=== PATIENT | male | born 1955 | race Caucasian/White ===

== ENCOUNTER → 2024-05-21 11:08 | Outpatient (REF) | payer OTHER, SELFPAY | LOC: RCS 11:08 | PROVIDERS: ATTENDING PHYSICIAN Nuclear Medicine Nuclear Cardiology; FAMILY PHYSICIAN Family Medicine | DX: I44.7 Left bundle-branch block, unspecified (principal); R94.31 Abnormal electrocardiogram [ECG] [EKG]; I49.3 Ventricular premature depolarization | CPT/HCPCS: 93306 ==

== ENCOUNTER 2025-06-11 10:12 | Emergency (ER) | payer MEDICARE, OTHER, SELFPAY ==
[2025-06-11 10:14] VITALS: BP 149/110
--- NOTE | 2025-06-11 10:58 | ED.GENMED ---
History of Present Illness
<CHIRAG Campuzano - Last Filed: 06/11/25 14:36>
General
Chief Complaint: Skin Problem
Source: patient
Exam Limitations: none
Time Seen by Provider: 06/11/25 10:53
Nursing documentation reviewed up to this point in time: agreed with
History of Present Illness
History of Present Illness:
Patient is a 70-year-old male who presented to the ER for evaluation. He reports on May 17 [place] the [place] and that evening had itchiness to his left upper thigh. He noticed redness and 2 days after May 19 went to urgent care was placed on
Keflex. He took that for 10 days. He reports it got better but then there is slight extension and on May 27 his family doctor extended it for 5 more days for total of 10 days. He ended Keflex last June 02. It almost was away and then on
he had increasing redness to the area again and now has 2 separate areas of redness. He was seen by his family doctor yesterday placed on prednisone. He took 50 mg yesterday and 20 mg today and was recommended to come to the ER by family
doctor today.
He denies any fever or chills. He does not feel ill
Phy Exam
<CHIRAG Campuzano - Last Filed: 06/11/25 14:36>
General Physical Exam
General Presentation: no apparent distress
General age: appears stated age
General Skin: warm and dry
General Habitus: normal
General Mental: alert
General Hydration: appears well hydrated
Neurological Exam
Neurological Exam: alert and oriented x3
Musculoskeletal Exam
Musculoskeletal Exam: other (left thigh with extended area of erythema /induration no fluctuance, additional separate area in groin area)
Skin Exam
Skin Exam: normal color and warm/dry
Psychiatric Exam
Psychiatric Exam: normal mood/affect
Course
<CHIRAG Campuzano - Last Filed: 06/11/25 14:36>
Orders/Labs/Results
Orders:
Orders
06/11/25 11:18
IV Insert/Care/Rem.- Treatment PRN
06/11/25 11:27
Complete Blood Count/With Diff Urgent
Comprehensive Metabolic Panel Urgent
06/11/25 11:48
Vital Signs- Treatment ONCE
Frequency: Once
06/11/25 12:25
US Periph Venous LOWER Ext LT Urgent
Comment:
Reason For Exam: LLE pain, redness
06/11/25 14:28
Doxycycline [Vibramycin] 100 mg PO NOW STA
06/12/25 08:00
Doxycycline [Vibramycin] 100 mg PO DAILY
Abnormal Lab Results
06/11/25
11:27
WBC 11.5 H 10^3/uL
(4.8-10.8)
RBC 4.48 L 10^6/uL
(4.70-6.10)
MCV 95.1 H fL
(80.0-94.0)
MCH 32.8 H pg
(27.0-31.0)
MPV 11.9 H fL
(7.4-10.4)
Absolute Neuts (auto) 9.2 H 10^3/uL
(1.4-6.5)
Absolute Lymphs (auto) 0.9 L 10^3/uL
(1.2-3.4)
Absolute Monos (auto) 1.3 H 10^3/uL
(0.1-0.6)
Neutrophils % 79.5 H %
(42.2-75.2)
Lymphocytes % 8.2 L %
(20.5-51.1)
Monocytes % 10.9 H %
(1.7-9.3)
Creatinine 0.6 L mg/dL
(0.7-1.3)
Glucose 136 H mg/dl
(70-99)
06/11/25 11:27
06/11/25 11:27
Vital Signs
Initial and Last Documented VS:
Initial Vital Signs
Temp Pulse Resp BP Pulse Ox
98.1 F 117 16 149/110 97
06/11/25 10:14 06/11/25 10:14 06/11/25 10:14 06/11/25 10:14 06/11/25 10:14
Last Documented Vital Signs
Temp Pulse Resp BP Pulse Ox
98.1 F 59 15 137/87 97
06/11/25 10:14 06/11/25 12:00 06/11/25 12:00 06/11/25 12:00 06/11/25 12:00
<Silvio Capps MD - Last Filed: 06/11/25 12:34>
Orders/Labs/Results
Orders:
Orders
06/11/25 11:18
IV Insert/Care/Rem.- Treatment PRN
06/11/25 11:27
Complete Blood Count/With Diff Urgent
Comprehensive Metabolic Panel Urgent
06/11/25 11:48
Vital Signs- Treatment ONCE
Frequency: Once
06/11/25 12:25
US Periph Venous LOWER Ext LT Urgent
Comment:
Reason For Exam: LLE pain, redness
06/11/25 14:28
Doxycycline [Vibramycin] 100 mg PO NOW STA
06/12/25 08:00
Doxycycline [Vibramycin] 100 mg PO DAILY
Abnormal Lab Results
06/11/25
11:27
WBC 11.5 H 10^3/uL
(4.8-10.8)
RBC 4.48 L 10^6/uL
(4.70-6.10)
MCV 95.1 H fL
(80.0-94.0)
MCH 32.8 H pg
(27.0-31.0)
MPV 11.9 H fL
(7.4-10.4)
Absolute Neuts (auto) 9.2 H 10^3/uL
(1.4-6.5)
Absolute Lymphs (auto) 0.9 L 10^3/uL
(1.2-3.4)
Absolute Monos (auto) 1.3 H 10^3/uL
(0.1-0.6)
Neutrophils % 79.5 H %
(42.2-75.2)
Lymphocytes % 8.2 L %
(20.5-51.1)
Monocytes % 10.9 H %
(1.7-9.3)
Creatinine 0.6 L mg/dL
(0.7-1.3)
Glucose 136 H mg/dl
(70-99)
06/11/25 11:27
06/11/25 11:27
Vital Signs
Initial and Last Documented VS:
Initial Vital Signs
Temp Pulse Resp BP Pulse Ox
98.1 F 117 16 149/110 97
06/11/25 10:14 06/11/25 10:14 06/11/25 10:14 06/11/25 10:14 06/11/25 10:14
Last Documented Vital Signs
Temp Pulse Resp BP Pulse Ox
98.1 F 59 15 137/87 97
06/11/25 10:14 06/11/25 12:00 06/11/25 12:00 06/11/25 12:00 06/11/25 12:00
<CHIRAG Campuzano - Last Filed: 06/11/25 14:36>
MDM/Problems Addressed
Differential Diagnosis Includes:
Not including cellulitis, infection
MDM/Problems Addressed:
As documented patient is a 70-year-old male that was treated with 15 days of Keflex for cellulitis to left leg seemed to improve and then came back again however he does have a second separate area as well. Patient has 2 separate areas of erythema
to his left thigh with induration. He however is very well-appearing he denies any fever chills he is nontoxic he is still very active. His white count is minimally elevated he is afebrile here. Case reviewed with ED physician will obtain
ultrasound and consult ID if negative to discuss antibiotics.
1425: Ultrasound negative for DVT Case discussed with Dr. Mayes does recommend Doxy. Patient is very well-appearing and very active does not feel ill I did however review with patient we will start doxycycline as a new antibiotic however he is to
be closely followed by his family doctor and prompt return if any worsening of symptoms worsening redness red streaking pain fever chills.
<CHIRAG Campuzano - Last Filed: 06/11/25 14:36>
*Pulse Oximetry
SaO2: 97
Oxygen Mode of Delivery: Room air
Patient hypoxic: no
*Critical Care Note
Total Time (30-74mins, 75-104mins- exclusive of procedures): Not Applicable
<CHIRAG Campuzano - Last Filed: 06/11/25 14:36>
Patient Management
Discussion with other providers: Television Tube Inspector (infectious disease DR Goldsmith )
ED Attending Note
<CHIRAG Campuzano - Last Filed: 06/11/25 14:36>
-
Portions of this chart may have been created with voice recognition software.� Occasional wrong word or��sound alike� substitutions may have occurred due to the inherent limitations of voice recognition software.
<Silvio Capps MD - Last Filed: 06/11/25 12:34>
ED Attending Note
Patient seen and examined by attending physician: Yes
ED Attending Note:
I have seen and evaluated the patient with a [id number] encounter. I have spoken to the TOMEKA and involved in the medical history, the physical exam, medical decision making.
Evaluation and management service: agree unless noted differently below.
Results interpretation: agree unless noted differently below.
Focused HPI: 70-year-old male with history of hyperlipidemia presents to the ER for evaluation of left lower extremity redness and pain. Patient says that he had an insect bite last month while he was at the beach that became red and inflamed and
he ultimately developed extensive redness on the entire left inner to upper thigh. He was seen in urgent care and was prescribed Keflex and he says he took it for 2 weeks. He says initially the redness improved it had essentially completely gone
away and the pain improved however after a few days off of the antibiotic it returned and has progressed now to include the inguinal crease. Was sent to the ER by his primary doctor to be further assessed. He says that the pain currently is less
than when he initially had the infection but redness is slightly more extensive. He denies any fevers or chills. He denies any chest pain, shortness of breath or any other acute complaints.
Physical exam: Patient was hypertensive and tachycardic in triage but on my assessment his vital signs are normal. He has erythema extending from the left medial thigh just proximal to the knee all the way up to the anterior inguinal crease�no
erythema in the scrotum or penis or in the suprapubic region; in the left mid inner thigh there is an area of induration. No wounds, pustules or drainage/weeping. No palpable cords. No edema. He has good pulses in the leg.
Medical Decision Makin-year-old male presents for evaluation of redness and pain in the left medial thigh�initially improved after 2 weeks of antibiotics but quickly had rebound symptoms that have progressed. Vitals and exam as above. He had
labs sent off including a CBC which showed a marginal leukocytosis. Will send for an ultrasound to rule out DVT and evaluate for collection/abscess. Will reassess after the above�will likely discuss with infectious disease regarding antibiotic
choice going forward if DVT study negative.
Discharge Plan
Departure
Patient Disposition: Home (Routine Discharge)
Date of Disposition: 06/11/25
Time of Disposition: 14:30
Patient with high blood pressure during this ER visit?: Yes
Condition: Fair
Covid-19: Not Applicable
Discharge Problem:
Cellulitis
Instructions: Cellulitis (Skin Infection), Adult (DC), BLOOD PRESSURE
Prescriptions:
New
doxycycline hyclate 100 mg capsule
100 mg PO BID Qty: 20 0RF
No Action
atorvastatin 40 mg tablet
40 mg PO HS
prednisone 10 mg Tablet
50 mg PO .TAPER
Patient Comments:
06/11/25: 50 mg taper starte 06/10/25, 20 mg taken this morning
Referrals:
Gonsalo Snider MD [Family Provider, Family Practice]
Activity Restrictions/Additional Instructions:
As discussed stop prednisone. Start doxycycline 1 tablet twice a day for the next 10 days. Please follow-up with a family doctor in 2 days for reevaluation and recheck. Return however if any worsening of symptoms include increasing pain swelling
redness red streaking fever chills. In addition please stay out of the sun with doxycycline, apply sun screen if any brief exposure to the sun.
Interventions
Interventions:
*Risk Screen - Suicide Last Done: 06/11/25 10:14
*General Assessment Last Done: 06/11/25 10:14
*Neglect/Abuse Screening Last Done: 06/11/25 10:14
ED-Skin Assessment Last Done: 06/11/25 12:15
Discharge Date and Time
Print Language: DANISH
[2025-06-11 11:40] LABS: Hematocrit 42.6 % (39.0-52.0); Hemoglobin 14.7 g/dL (13.0-18.0); Mean Corp Hgb Conc. 34.5 g/dL (33.0-37.0); Mean Corpuscular Volume 95.1 fL (80.0-94.0); Nucleated Red Blood Cells % 0 % (-); Platelet Count 168 10^3/uL (130-400); Red Cell Dist. Width 12.2 % (11.5-14.5)
[2025-06-11 11:51] VITALS: BMI 26.9
[2025-06-11 12:00] VITALS: BP 137/87
[2025-06-11 12:14] LABS: ALT (SGPT) 22 U/L (0-50); AST (SGOT) 21 U/L (17-59); Albumin 4.6 g/dl (3.5-5.0); Alkaline Phosphatase 72 U/L (38-126); Blood Urea Nitrogen 16 mg/dl (9-20); Calcium 9.8 mg/dl (8.4-10.2); Carbon Dioxide 27 mmol/L (22-30); Chloride 105 mmol/L (98-107); Estimated Creatinine Clearance > 125 ml/min; Glucose 136 mg/dl (70-99); Potassium 4.2 mmol/L (3.5-5.1); Sodium 140 mmol/L (135-145); Total Protein 7.2 g/dl (6.3-8.2); eGFR > 60.00
[2025-06-11] MEDS: VIBRAMYCIN 100 MG PO (14:39)
== END 2025-06-11 14:30 | disposition home or self-care (01) ==
LOC: EMR 10:12
PROVIDERS: Nurse Practitioner; EMERGENCY PHYSICIAN Emergency Medicine; FAMILY PHYSICIAN Family Medicine
DX: L03.116 Cellulitis of left lower limb (principal); M79.605 Pain in left leg
CPT/HCPCS: 99284; 80053; 85025; 93971

== ENCOUNTER → 2025-06-13 08:01 | Outpatient (REF) | payer MEDICARE, OTHER, SELFPAY | LOC: RCS 08:01 | PROVIDERS: ATTENDING PHYSICIAN Nuclear Medicine Nuclear Cardiology; FAMILY PHYSICIAN Family Medicine | DX: I49.3 Ventricular premature depolarization (principal); I44.7 Left bundle-branch block, unspecified | CPT/HCPCS: 93306 ==

== ENCOUNTER 2025-09-08 18:14 | Emergency (ER) | payer MEDICARE, OTHER, SELFPAY ==
[2025-09-08] VITALS (9 sets, daily range): BP systolic 131–163; BP diastolic 82–119; BMI 28.2
[2025-09-08] MEDS: VENTOLIN NEBULES 2.5 MG INH (18:32)
[2025-09-08] MEDS: DECADRON 10 MG IV (18:32)
[2025-09-08] MEDS: BENADRYL 25 MG IV (18:33)
[2025-09-08] MEDS: PEPCID 20 MG IV (18:33)
--- NOTE | 2025-09-08 19:04 | ED.GENMED ---
History of Present Illness
General
Chief Complaint: Insect Sting
Source: patient
Exam Limitations: none
Time Seen by Provider: 09/08/25 18:23
Nursing documentation reviewed up to this point in time: agreed with
History of Present Illness
History of Present Illness:
Patient presents to ED secondary to bee sting on his tongue, shortly prior to arrival. Patient states that he was not aware that a bee had gone into his can of beer. When he took a sip, he got stung on top of his tongue. Since then, patient has
noticed his continual swelling of his tongue. Denies shortness of breath. Denies nausea or vomiting. Denies chest pain. Denies dizziness. Denies chest palpitations. Denies throat swelling sensation. Patient has been stung by bee long time
ago. Does not recall having had significant allergic reaction.
Review of Systems
Review of Systems
Allergies reviewed?: Yes
All Other Systems: ROS reviewed and negative except as documented in HPI and ROS
Constitutional: Reports no symptoms
Respiratory: Denies cough or trouble breathing
Cardiac: Reports no symptoms
ABD/GI: Reports no symptoms; Denies vomiting
Musculoskeletal: Reports no symptoms
Skin: Reports other (tongue swelling)
Neurological: Reports no symptoms
Phy Exam
Physical Exam
Physical Exam:
Physical Exam
General: mild distress, not acutely ill. afebrile
Head: nc/at. eomi
Neck: supple. normal range of motion. no stridor. Posterior pharynx well-visualized.
Heart: s1/s2 regular rate and rhythm
Lungs: no acute respiratory distress. clear bilaterally
Abdomen: normal bowel sounds. not tender.
Neuro: alert and oriented x 3. no focal neurological deficits
Skin: mild tongue swelling noted
Psychiatric: well kept. interactive and cooperative
Extremities: no edema. no calf tenderness.
Course
Orders/Labs/Results
Orders:
Orders
09/08/25 18:23
Dexamethasone Sod Phosphate [Decadron] 10 mg IV NOW STA
Diphenhydramine [Benadryl] 25 mg IV NOW STA
Famotidine [Pepcid] 20 mg IV NOW STA
09/08/25 18:29
Albuterol Nebs [Ventolin Nebules] 2.5 mg .ROUTE .STK-MED ONE
Albuterol Nebs [Ventolin Nebules] 2.5 mg INH R NOW STA
09/08/25 18:52
Dexamethasone Sod Phosphate [Decadron] 40 mg .ROUTE .STK-MED ONE
Diphenhydramine [Benadryl] 50 mg .ROUTE .STK-MED ONE
EPINEPHrine PF [Adrenalin] 1 mg .ROUTE .STK-MED ONE
09/08/25 18:53
Famotidine [Pepcid] 40 mg .ROUTE .STK-MED ONE
09/08/25 19:31
Diazepam [Valium] 5 mg PO NOW STA
Vital Signs
Initial and Last Documented VS:
Initial Vital Signs
Temp Pulse Resp BP Pulse Ox
97.7 F 100 18 163/103 99
09/08/25 18:16 09/08/25 18:16 09/08/25 18:16 09/08/25 18:16 09/08/25 18:16
Last Documented Vital Signs
Temp Pulse Resp BP Pulse Ox
97.9 F 81 20 143/89 95
09/08/25 21:12 09/08/25 21:00 09/08/25 21:00 09/08/25 21:00 09/08/25 21:00
MDM/Problems Addressed
MDM/Problems Addressed:
Patient with significant improvement in symptoms after treatment and during subsequent observation. Patient is able to speak in full sentences, able to swallow water, with minimal difficulty. Patient with fortunately localized inflammatory
response of tongue from bee sting, without any other symptoms concerning for severe allergic reaction. However, as patient has had multiple incidents with bee sting, patient will be given prescription for EpiPen, to be available at home. Patient
will follow-up with PCP with any further concerns. Patient otherwise is without any respiratory distress, at time of discharge, to the care of his spouse.
*Pulse Oximetry
SaO2: 98
Oxygen Mode of Delivery: Room air
Patient hypoxic: no
*Critical Care Note
Total Time (30-74mins, 75-104mins- exclusive of procedures): Not Applicable
ED Attending Note
-
Portions of this chart may have been created with voice recognition software.� Occasional wrong word or��sound alike� substitutions may have occurred due to the inherent limitations of voice recognition software.
Discharge Plan
Departure
Patient Disposition: Home (Routine Discharge)
Date of Disposition: 09/08/25
Time of Disposition: 21:03
Patient with high blood pressure during this ER visit?: Yes
Condition: Good
Discharge Problem:
Bee sting
Instructions: Insect bites and stings - ED (DC)
Prescriptions:
New
epinephrine [EpiPen 2-Mason] 0.3 mg/0.3 mL auto-injector
0.3 mg IM ONCE Qty: 2 0RF
No Action
atorvastatin 40 mg tablet
40 mg PO HS
Referrals:
Gonslao Snider MD [Family Provider, Family Practice]
Activity Restrictions/Additional Instructions:
As discussed, please follow-up with your primary care physician with any further concerns. Your prescription has been sent electronically to [facility] pharmacy in [place].
Interventions
Interventions:
*Risk Screen - Suicide Last Done: 09/08/25 18:17
*General Assessment Last Done: 09/08/25 18:17
*Neglect/Abuse Screening Last Done: 09/08/25 18:17
*ED- Fall Risk Assessment Last Done: 09/08/25 18:43
*ED COVID-19 Vaccine History Last Done: 09/08/25 18:17
*ED Influenza Vaccine History Last Done: 09/08/25 18:17
*Nursing Disposition Last Done: 09/08/25 21:12
ED-Skin Assessment Last Done: 09/08/25 18:55
ED- Pulmonary Assessment Last Done: 09/08/25 18:55
Discharge Date and Time
Discharge Date/Time: 09/08/25 21:14
Print Language: AMHARIC
== END 2025-09-08 21:14 | disposition home or self-care (01) ==
LOC: EMR 18:14
PROVIDERS: EMERGENCY PHYSICIAN Emergency Medicine; FAMILY PHYSICIAN Family Medicine
DX: T63.441A Toxic effect of venom of bees, accidental (unintentional), initial encounter (principal); X58.XXXA Exposure to other specified factors, initial encounter
CPT/HCPCS: 94640; 96374; 96375; 99284